=== PATIENT | female | born 2000 | race Caucasian/White ===

== ENCOUNTER 2025-03-31 21:36 | Inpatient (IN) | payer OTHER ==
[~2025-03-31] VITALS: Ht 162.6 cm; Wt 83.9 kg
--- NOTE | ~2025-03-31 | OR ---
[facility] [address] [place], [place] [address] Draft DATE OF OPERATION: 04/01/2025 SURGEON: Katya Sharp DO PREOPERATIVE DIAGNOSES: 1. Intrauterine at 41 weeks gestation. 2. Failure to descend. 3. Persistent OP positioning. POSTOPERATIVE DIAGNOSES: 1. Intrauterine at 41 weeks gestation. 2. Failure to descend. 3. Persistent OP positioning. PROCEDURE PERFORMED: Primary low transverse section. WAREHOUSE EXAMINER: EMISSION TECHNICIAN. ANESTHESIA: Epidural with postoperative TAP blocks. QUANTITATIVE BLOOD LOSS: 868 mL. DRAINS: Munroe to gravity. COMPLICATIONS: None. FINDINGS: Delivery of viable male in the LOT position with nuchal cord x1. Remarkably very straight umbilical cord. Apgars 3, 8 and 10. PH venous 7.28, pH arterial 7.20. Some atony that resolved with Pitocin and rectal Cytotec was placed at the end of the procedure. INDICATIONS: Ms. Hernandez is a very pleasant 24-year-old nulliparous patient who presented last night in PATIENT NAME: CHARU HERNANDEZ OPERATIVE REPORT DATE OF : 02 REPORT #: [id number] PHYSICIAN: KATYA SHARP (LIAM) PCP: KASEY OSCAR PA-C REPORT IS CONFIDENTIAL AND NOT TO BE RELEASED WITHOUT AUTHORIZATION [address] [address] Draft early labor at 41 weeks gestation. She progressed fairly rapidly to complete. The patient pushed well with contractions, but very limited descent was noted in approximately 4 hours of pushing time. The patient previously received epidural was comfortable. Persistent occiput posterior position was noted and rotational maneuvers were unsuccessful. vertex was too high in the pelvis to recommend operative vaginal delivery. Recommended primary . Risks, benefits, and alternatives were discussed in detail with the patient. The patient understands and wished to proceed. DESCRIPTION OF PROCEDURE: The patient was taken the OR. A time-out was performed to confirm correct patient, correct procedure. Epidural anesthesia was bolused and found to be adequate. The patient was prepped and draped in the supine position with a bump under the right hip. The patient received Ancef 2 g and azithromycin 500 mg IV per SCIP protocol. Heparin was not indicated. Once anesthesia was noted to be adequate, a Pfannenstiel skin incision was made approximately 2 cm above the pubic symphysis and carried down to the fascia. The fascia was nicked in the midline and fascial incision was extended bilaterally using curved Bhardwaj scissors. Rectus was divided in the midline and peritoneum was entered bluntly. Peritoneal incision was extended cephalad, caudad using blunt and sharp dissection. Lower uterine segment was identified. An Kevin self retractor was placed and hysterotomy was performed using a surgical scalpel. Small amount of meconium-stained fluid was noted. Hysterotomy was extended bilaterally using blunt dissection. The surgeon's hand was placed in the uterine cavity and the vertex gently elevated in the LOT position. The significant caput into the maternal abdomen and delivered with the assistance of fundal pressure. Upon delivery, the was not vigorous. Cord was doubly clamped and cut. The handed to the waiting pediatric team for further care. A section of the cord was obtained for cord gases that were normal as above. Cord blood was obtained for routine analysis. The placenta was expressed, intact with a centrally inserted three-vessel cord. The uterine cavity was cleared of any remaining products of conception or clot. At this point, the patient was quite painful and the uterus and pelvis was packed and pressure was held until the patient was more comfortable. At this point, the packing was removed and hysterotomy was repaired in two layers of 0 Monocryl. The first being a running locked layer and the second being an imbricating suture in a vertical manner. A small amount of oozing was noted in the midline and this was made hemostatic with a [id number] suture. The pelvis was irrigated and found to be hemostatic. Luna was applied to the lower uterine segment. Normal uterus, tubes, and ovaries were appreciated. Kevin self retractor was removed. After hemostasis was again observed. The peritoneum was then reapproximated using 2-0 Vicryl in a running nonlocked manner. The rectus sheath was then made hemostatic with Bovie electrocautery and the rectus was plicated loosely in the midline with three interrupted sutures of 0 Vicryl. Luna was applied in this layer once hemostasis was appreciated. Fascia was reapproximated using 0 Vicryl in a PATIENT NAME: CHARU HERNANDEZ OPERATIVE REPORT DATE OF : 02 REPORT #: [id number] PHYSICIAN: KATYA SHARP (LIAM) DO PCP: KASEY OSCAR PA-C REPORT IS CONFIDENTIAL AND NOT TO BE RELEASED WITHOUT AUTHORIZATION [facility] [address] [place] [id number] Draft running nonlocked manner. Subcu was made hemostatic with judicious use of Bovie electrocautery. Subcu was then reapproximated using 3-0 Vicryl in a running nonlocked manner. Skin was reapproximated using subcuticular dissolvable sutures with excellent reapproximation, hemostasis and cosmesis. The uterus was Crede'd for amount of blood approximately 175 mL. The patient did have some uterine atony noted initially that resolved with Pitocin and decision was made to administer Cytotec 800 mcg rectally. This was performed by the physician. The patient then remained in the OR for postoperative TAP blocks. Sponge, needle, and instrument counts were correct x2 at end of the procedure. DO MARIN Kan/ALISHA /[id number] Copies: ~ PATIENT NAME: CHARU HERNANDEZ OPERATIVE REPORT DATE OF : 02 REPORT #: [id number] PHYSICIAN: KATYA SHARP) PCP: KASEY OSCAR PA-C REPORT IS CONFIDENTIAL AND NOT TO BE RELEASED WITHOUT AUTHORIZATION
[~2025-03-31 21:36] MED LIST: BENTYL10 MG PO
[2025-03-31] MEDS ORDERED: LACTATED RINGER'S 1,000 ML IV PRN (23:45)
[2025-03-31] MEDS ORDERED: LACTATED RINGER'S 1,000 ML IV SCH (23:45)
[2025-03-31] MEDS ORDERED: OXYTOCIN/0.9 % SODIUM CHLORIDE 30 UNITS/500 ML BAG IV SCH (23:45)
[2025-03-31] MEDS ORDERED: MAGNESIUM HYDROXIDE/AL HYDROX 30 ML CUP PO PRN (23:45)
[2025-03-31] MEDS ORDERED: CALCIUM CARBONATE 500 MG CHEW PO PRN (23:45)
[2025-04-01 00:13] LABS: HEMATOCRIT 34.7 % (35.0-50.0); HEMOGLOBIN 11.6 g/dL (12.0-18.0); MCH 27.8 (27-36); MCHC 33.4 g/dl (30-36); MCV 83.5 fl (81-99); PLATELET COUNT 236 K/uL (140-440); RBC 4.15 M/ul (4.3-5.7); RDW 31.3 (10.5-15.0)
[2025-04-01 00:24] VITALS: BP 132/96
[2025-04-01 00:24] LABS: AMPHETAMINES, URINE NEGATIVE (NEGATIVE); BARBITURATES, URINE NEGATIVE (NEGATIVE); BENZODIAZEPINE, URINE NEGATIVE (NEGATIVE); BUPRENORPHINE, URINE NEGATIVE (NEGATIVE); CANNABINOID, URINE NEGATIVE (NEGATIVE); COCAINE, URINE NEGATIVE (NEGATIVE); ECSTASY, URINE NEGATIVE (NEGATIVE); FENTANYL, URINE NEGATIVE (NEGATIVE); METHADONE, URINE NEGATIVE (NEGATIVE); OPIATES, URINE NEGATIVE (NEGATIVE); OXYCODONE, URINE NEGATIVE (NEGATIVE); PHENCYCLIDINE, URINE NEGATIVE (NEGATIVE)
[2025-04-01 00:27] LABS: SMEAR REVIEW BLOOD SEE COMMENTS
[2025-04-01 00:50] LABS: ABO O; RH POSITIVE
[2025-04-01 00:50] LABS: ABO O; ANTIBODY SCREEN NEGATIVE; IS CROSSMATCH COMPATIBLE; RH POSITIVE
[2025-04-01] MEDS ORDERED: ROPIVACAINE 0.2% 200 ML BAG ONE (01:09)
[2025-04-01] MEDS ORDERED: ePHEDrine KIT FOR FBC IV ONE (01:42)
[2025-04-01] MEDS ORDERED: LACTATED RINGER'S 500 ML IV PRN (01:45)
[2025-04-01] MEDS ORDERED: ePHEDrine sulfate 5 MG/ML SYRINGE IV PRN (01:45)
[2025-04-01] MEDS ORDERED: ROPIVACAINE 0.2% 200 ML BAG EPIDURAL SCH (01:45)
[2025-04-01] MEDS ORDERED: LACTATED RINGER'S 2,000 ML IV ONE (01:45)
--- NOTE | 2025-04-01 06:18 | PR ---
[facility] [address] [place], [place] [address] Signed Progress Notes IP Datetime Report Generated by HARMONY: 04/01/2025 06:18 PROGRESS NOTES: [id number] Impression: Normal Progression of Labor; Reassuring Heart Rate Other Impressions: caput and LOP position Procedures: Sterile Vag Exam Plan: Continue Present Management Informed Consent Obtain: Vaginal Delivery; Section Delivery VITAL SIGNS: [id number] Vital Signs: Reviewed VS Notable Details: Mild tachycardia, afebrile, last BP elevated but remainder normal; will monitor EXAM: [id number] Dilatation: 10.0 Effacement: 100 Station: 0 Contractions: q 2 min MEMBRANES: [id number] Amniotic Fluid Color: Meconium, Light Comments: Pt seen and examined. Doing well. Pushing well w/ contractions. LOP position w/ minimal descent noted. Will continue pushing efforts and discussed option for rotational maneuvers. Continue maternal positional changes. Discussed indications for C/S if needed. FETUS A: [id number] FHR Baseline: 140 Variability: Moderate 6-25bpm Accelerations: 15X15 Decelerations: Variable FHR Category: Category II Presentation: Vertex Comments on Fetus A: No evidence of metabolic acidosis FETUS B: [id number] Signing Physician: Katya Sharp DO Copies: ~ *Electronically Signed* 04/01/25 0618 KATYA SHARP (LIAM) DO PATIENT NAME: CHARU HERNANDEZ PROGRESS NOTE DATE OF : 02 PHYSICIAN: KATYA SHARP (JD) DO RPT #: [id number] REPORT IS CONFIDENTIAL AND NOT TO BE RELEASED WITHOUT AUTHORIZATION
[2025-04-01] MEDS ORDERED: SOD+POT BICARB/CITRIC ACID 2 EA TABLET.EFF PO ONE (07:00)
[2025-04-01] MEDS ORDERED: CEFAZOLIN SODIUM 2 GM/20 ML SYR IV SCH (07:00)
[2025-04-01] MEDS ORDERED: AZITHROMYCIN 500 MG in DEXTROSE 5% 250 ML IV ONE (07:00)
[2025-04-01] MEDS ORDERED: SOD+POT BICARB/CITRIC ACID 2 EA TABLET.EFF ONE (07:03)
--- NOTE | 2025-04-01 07:05 | PR ---
[facility] [address] [place], [place] [address] Signed Progress Notes IP Datetime Report Generated by HARMONY: 04/01/2025 07:05 PROGRESS NOTES: [id number] Impression: Arrest of Dilatation/Descent; Reassuring Heart Rate Other Impressions: caput and LOP position Procedures: Sterile Vag Exam Plan: Deliver- Section Informed Consent Obtain: Section Delivery; Risks, Benefits and Alternatives Discussed VITAL SIGNS: [id number] Vital Signs: Reviewed VS Notable Details: Mild tachycardia, afebrile, last BP elevated but remainder normal; will monitor EXAM: [id number] Dilatation: 10.0 Effacement: 100 Station: 0 Contractions: q 2 min MEMBRANES: [id number] Amniotic Fluid Color: Meconium, Light Comments: Pt pushed well w/ contractions and maternal position changes. No decent noted despite adequate contractions and excellen maternal expulsive efforts. Gentle vaginal rotational maneuver attempted but unsuccessful. Recommended primary C/S for failure to decend and persistant OP position. Pt understands and agrees. Ancef 2g and Azithromicin 500mg IV now. Consents signed. Reviewed risks/benefits / alternatives. Did discuss that station too high for operative vaginal . Will proceed to OR FETUS A: [id number] FHR Baseline: 140 Variability: Moderate 6-25bpm Accelerations: 15X15 Decelerations: Variable FHR Category: Category II Presentation: Vertex Comments on Fetus A: No evidence of metabolic acidosis FETUS B: [id number] Signing Physician: Katya Sharp DO *Electronically Signed* 04/01/25704 KATYA SHARP) DO PATIENT NAME: CHARU HERNANDEZ PROGRESS NOTE DATE OF : 02 PHYSICIAN: KATYA SHARP (JD) DO RPT #: [id number] REPORT IS CONFIDENTIAL AND NOT TO BE RELEASED WITHOUT AUTHORIZATION [facility] [address] [place] [address] Signed Copies: ~ *Electronically Signed* 04/01/25704 KATYA SHARP) DO PATIENT NAME: CHARU HERNANDEZ PROGRESS NOTE DATE OF : 02 PHYSICIAN: KATYA SHARP (JD) DO RPT #: [id number] REPORT IS CONFIDENTIAL AND NOT TO BE RELEASED WITHOUT AUTHORIZATION
[2025-04-01] MEDS ORDERED: MORPHINE SULFATE 1 MG/ML VIAL ONE (07:07)
[2025-04-01] MEDS ORDERED: LIDOCAINE 2% W/ EPI 1:200,000 20 ML SDV ONE (07:07)
[2025-04-01] MEDS ORDERED: ondansetron HCL 4 MG/2 ML VIAL ONE (07:08)
[2025-04-01] MEDS ORDERED: fentaNYL citrate 100 MCG/2 ML VIAL ONE (07:52)
[2025-04-01] MEDS ORDERED: PHENYLEPHRINE HCL 10 MG/ML VIAL ONE (07:55)
[2025-04-01] MEDS ORDERED: SODIUM CHLORIDE 0.9% 20 ML IV ONE ×2 (07:56→08:22)
[2025-04-01] MEDS ORDERED: OXYTOCIN 10 UNITS/ML VIAL ONE (07:56)
[2025-04-01] MEDS ORDERED: diphenhydrAMINE HCL 50 MG/ML VIAL IV PRN (08:15)
[2025-04-01] MEDS ORDERED: KETOROLAC TROMETHAMINE 30 MG/ML VIAL IV PRN ×2 (08:15)
[2025-04-01] MEDS ORDERED: fentaNYL citrate 50 MCG/ML SDV IV PRN (08:15)
[2025-04-01] MEDS ORDERED: HYDROmorphone HCL 1 MG/ML SYR IV PRN (08:15)
[2025-04-01] MEDS ORDERED: NALOXONE HCL 0.4 MG SYR IV PRN ×2 (08:15)
[2025-04-01] MEDS ORDERED: IBLOOD GLUCOSE TEST STRIP 1 EA TEST VI PRN (08:15)
[2025-04-01] MEDS ORDERED: diphenhydrAMINE HCL 25 MG CAP PO PRN (08:15)
[2025-04-01] MEDS ORDERED: ondansetron HCL 4 MG/2 ML VIAL IV PRN ×2 (08:15)
[2025-04-01] MEDS ORDERED: Ropivacaine HCl 0.5% 30 ML VIAL ONE (08:22)
[2025-04-01] MEDS ORDERED: DEXAMETHASONE SOD PHOS 4 MG/ML VIAL ONE (08:22)
[2025-04-01] MEDS ORDERED: dexmedeTOMIDine HCl 200 MCG/2 ML VIAL ONE (08:22)
[2025-04-01] MEDS ORDERED: miSOPROStoL 200 MCG TAB PR ONE (08:30)
[2025-04-01] MEDS ORDERED: LACTATED RINGER'S 1,000 ML IV SCH (08:38)
[2025-04-01] MEDS ORDERED: METOCLOPRAMIDE HCL 10 MG/2 ML SDV IV PRN (08:45)
[2025-04-01] MEDS ORDERED: bisacodyL 10 MG SUPP PR PRN (08:45)
[2025-04-01] MEDS ORDERED: PROCHLORPERAZINE EDISYLATE 10 MG/2 ML VIAL IV PRN (08:45)
[2025-04-01] MEDS ORDERED: PROMETHAZINE HCL 25 MG TAB PO PRN (08:45)
[2025-04-01] MEDS ORDERED: OXYCODONE/APAP 5/325 TAB PO PRN (08:45)
[2025-04-01] MEDS ORDERED: OXYTOCIN/0.9 % SODIUM CHLORIDE 500 ML IV SCH (08:45)
[2025-04-01] MEDS ORDERED: PROMETHAZINE HCL 25 MG SUPP PR PRN (08:45)
[2025-04-01] MEDS ORDERED: HYDROCODONE/ACETA 5/325 TAB PO PRN (08:45)
[2025-04-01] MEDS ORDERED: SENNOSIDES/DOCUSATE 1 EA TAB PO SCH (09:00)
[2025-04-01 09:44] VITALS: BP 87/53
--- NOTE | 2025-04-01 10:01 | NUR ---
04/01/25 1001 [place] 0845-PT BROUGHT TO C ROOM 101 VIA STRETCHER, RESTING SUPINE, PT A+O X4, VSS ON RA, RR EVEN AND UNLABORED. PT DENIES PAIN OR NAUSEA. HOB RAISED TO SEMI FOWLERS PER PT REQUEST. 09-PT HOLDING BABY FOR SKIN TO SKIN, DENIES PAIN OR NAUSEA, VSS ON RA. 904-FINAL FUNDAL CHECK COMPLETED W/ FBC RN. DECREASED BP OBSERVED, FBC RN AWARE AND NOTIFIED, NO NEW ORDERS AT THIS TIME. TOP LION PAD WEIGHED. 09-BEDSIDE REPORT GIVEN TO FBC RN, ALL QUESTIONS ANSWERED. PT HOLDING BABY AND SIPPING ON WATER, DENIES PAIN OR NAUSEA, VSS ON RA.
[2025-04-01] MEDS ORDERED: SIMETHICONE 80 MG CHEW PO SCH (11:00)
[2025-04-01] MEDS ORDERED: KETOROLAC TROMETHAMINE 30 MG/ML VIAL IV SCH (14:00)
[2025-04-01] MEDS ORDERED: ENOXAPARIN SODIUM 40 MG/0.4 ML SYR SUB-Q SCH (16:00)
[2025-04-01] MEDS ORDERED: FERROUS SULFATE 325 MG TAB PO SCH (17:00)
[2025-04-02 05:28] LABS: HEMATOCRIT 23.2 % (35.0-50.0); HEMOGLOBIN 7.7 g/dL (12.0-18.0); MCH 27.8 (27-36); MCV 84.4 fl (81-99); RBC 2.76 M/ul (4.3-5.7); RDW 30.7 (10.5-15.0)
[2025-04-02] MEDS ORDERED: ondansetron HCL 4 MG/2 ML VIAL IV PRN (08:15)
[2025-04-02] MEDS ORDERED: IBUPROFEN 600 MG TAB PO SCH ×2 (08:15→14:00)
== END 2025-04-02 19:45 | disposition home or self-care (01) | DRG 788 ==
LOC: FBCO 21:36 → FBC 23:15
PROVIDERS: ADMIT Obstetrics & Gynecology; ATTEND Obstetrics & Gynecology
PROC: 4A033R1 Measurement of Arterial Saturation, Peripheral, Percutaneous Approach (ICD-10-PCS; 2025-03-31)
PROC: 10D00Z1 Extraction of Products of Conception, Low, Open Approach (ICD-10-PCS; principal; 2025-04-01 08:00)
DX: O62.1 Secondary uterine inertia (principal); O48.0 Post-term pregnancy; Z3A.41 41 weeks gestation of pregnancy; O64.0XX0 Obstructed labor due to incomplete rotation of fetal head, not applicable or unspecified; Z37.0 Single live birth; O77.0 Labor and delivery complicated by meconium in amniotic fluid; O69.81X0 Labor and delivery complicated by cord around neck, without compression, not applicable or unspecified; O99.02 Anemia complicating childbirth; D50.9 Iron deficiency anemia, unspecified; Z79.899 Other long term (current) drug therapy
CPT/HCPCS: 01961; 36415; 59025; 76942; 80307; 82803; 85027; 85060; 86850; 86900; 86901; 86922; A9270; G0463; J0456; J0690; J1100; J1650; J1885; J2274; J2371; J2405; J2590; J2795; J3010; J7060; J7121